=== PATIENT | male | born 1970 | race Caucasian/White ===

== ENCOUNTER → 2021-03-27 09:52 | Outpatient (CLI) | payer OTHER, SELFPAY ==
--- NOTE | 2021-03-27 12:51 | STRESSREP ---
Stress Test Report Date: 03-27-2021 Procedure: Exercise tolerance test Indications: Hypertension Consent: Per the patient Procedure: The patient exercised on a Jones protocol for 9 minutes completing Stage III achieving a peak heart rate of 176 bpm (102% predicted maximal heart rate) with a peak blood pressure 204/86 mmHg and a peak MET capacity of approximately 10 MET's. The baseline ECG demonstrated normal sinus rhythm; incomplete right bundle branch block. The peak exercise ECG demonstrated approximately [address] segment depression in leads II, III, aVF, and V4 through V6 with resolution towards baseline beginning by 1 minute in recovery. There were no cardiac dysrhythmias pretest, during exercise, or recovery. The functional capacity was considered good. The patient had no complaint of chest discomfort during exercise or recovery. The examination was discontinued secondary to dyspnea and fatigue. Impression: 1. Technically adequate (percent predicted maximal heart rate greater than 85%) exercise tolerance test 2. Peak exercise ECG considered abnormal with approximately [address] segment depression in leads II, III, aVF, and V4 through V6 with resolution towards baseline beginning by 1 minute in recovery 3. There were no cardiac dysrhythmias during exercise or recovery 4. Blood pressure: Resting hypertension-exaggerated blood pressure response This note was generated with Real Time [employer] software. It may contain incorrect words, spelling, and punctuation that were not noted in checking the note before signing.
== END ==
PROVIDERS: PCP Student in an Organized Health Care Education/Training Program; Referring Provider Student in an Organized Health Care Education/Training Program; Visit Provider Student in an Organized Health Care Education/Training Program
DX: I10 Essential (primary) hypertension (principal); R06.00 Dyspnea, unspecified
CPT/HCPCS: 93017